=== PATIENT | female | born 1950 | race Caucasian/White ===

== ENCOUNTER 2022-07-26 11:04 | Outpatient (CLI) | payer MEDICARE, OTHER, SELFPAY ==
--- NOTE | 2022-07-26 11:17 | CT_ITS ---
WS: [id number] LDCT LUNG CANCER SCREENING HISTORY: NICOTINE DEPENDENCE, CIGARETTES, IN REMISSION TECHNIQUE: Axial imaging performed from the apices to 1 cm below the costophrenic angles. Coronal and sagittal reformats are submitted with axial MIP series. All CT scans at [facility] use at least one of these dose optimization techniques: automated exposure control; mA and/or kV adjustment per patient size (includes targeted exams where dose is matched to clinical indication); or iterativ e reconstruction. DLP: 44.49 mGy.cm DIvol: Mean CTDIvol: 0.60 (mGy),Mean CTDIvol: 0.60 (mGy) COMPARISON: None available. Diagnostic quality: Satisfactory Lungs: Hyperexpanded lungs with emphysema. No pulmonary nodules or mass. No pneumonia. No endobronchi al lesions. Heart: Normal size heart with no pericardial effusion.. Other findings: Mild atherosclerosis aorta. Normal size pulmonary artery. Small hiatal hernia. CT/CT lung screening [id number] IMPRESSION: LUNG-RADS: 1-Negative FOLLOW UP: 12 Month: Continue annual screening with LDCT OTHER FINDINGS (S MODIFIER): None.
== END 2022-07-26 11:05 | disposition home or self-care (01) ==
LOC: RAD 11:11
PROVIDERS: PCP Registered Nurse; Visit Provider Registered Nurse
DX: Z13.83 Encounter for screening for respiratory disorder NEC (principal); F17.211 Nicotine dependence, cigarettes, in remission
CPT/HCPCS: 71271

== ENCOUNTER 2023-10-06 10:49 | Outpatient (CLI) | payer MEDICARE, OTHER, SELFPAY ==
--- NOTE | 2023-10-06 10:56 | CT_ITS ---
WS: [id number] LDCT LUNG CANCER SCREENING TECHNIQUE: Noncontrast CT of the chest with coronal and sagittal reformatted images. CLINICAL INFORMATION: HX OF TOBACCO USE COMPARISON: CT 07/26/2022 DLP: 52.79 mGy.cm DIvol: Mean CTDIvol: 0.80 (mGy) All CT scans at [facility] use at least one of these dose optimization techniques: automat ed exposure control; mA and/or kV adjustment per patient size (includes targeted exams where dose is matched to clinical indication); or iterative reconstruction. FINDINGS: Hyperinflation. Chronic emphysematous changes. Normal caliber thoracic aorta. Aortic calcification. C alcified mediastinal and RIGHT hilar lymph nodes. No axillary lymphadenopathy. Small esophageal hernia. Spinal granulomas. Adrenal glands are normal. Mild thoracic curve. Mild thor acic kyphosis. CT/CT lung screening [id number] IMPRESSION: LUNG-RADS: 1-Negative FOLLOW UP: 12 Month: Continue annual screening with LDCT
== END 2023-10-06 10:50 | disposition home or self-care (01) ==
LOC: RAD 10:50
PROVIDERS: PCP Registered Nurse; Visit Provider Family Medicine
DX: Z12.2 Encounter for screening for malignant neoplasm of respiratory organs (principal); Z87.891 Personal history of nicotine dependence; J43.9 Emphysema, unspecified; J98.4 Other disorders of lung; I70.0 Atherosclerosis of aorta; I89.8 Other specified noninfective disorders of lymphatic vessels and lymph nodes; K44.9 Diaphragmatic hernia without obstruction or gangrene; G06.1 Intraspinal abscess and granuloma
CPT/HCPCS: 71271